=== PATIENT | male | born 1995 | race Caucasian/White ===

== ENCOUNTER 2019-09-29 12:49 | Emergency (ER) | payer OTHER ==
[~2019-09-29] VITALS: Ht 172.7 cm; Wt 94.9 kg
[2019-09-29 12:52] VITALS: BP 143/102
[2019-09-29 13:37] LABS: ALBUMIN 4.5 g/dL (3.4-5.0); ANION GAP 10 mmol/L (5-15); CALCIUM 10.2 mg/dL (8.5-10.1); CHLORIDE 102 mmol/L (98-107)
[2019-09-29 13:41] LABS: TROPONIN I < 0.015 ng/mL (0.000-0.045)
[2019-09-29 13:47] LABS: CREATININE 1.24 mg/dL (0.7-1.3)
[2019-09-29 14:02] LABS: MEAN CORPUSCULAR HEMOGLOBIN 31.5 pg (27.5-34.5); MEAN CORPUSCULAR VOLUME 92.7 fL (81-97); MEAN PLATELET VOLUME 7.6 fL (7.4-10.4); PLATELET COUNT 295 x10^3/uL (130-400); RED BLOOD COUNT 5.12 x10^6/uL (4.38-5.82); RED CELL DISTRIBUTION WIDTH 12.7 % (9.4-14.8)
[2019-09-29 14:03] LABS: MD YES
[2019-09-29 14:07] LABS: <RBC MORPHOLOGY> NORMAL; LYMPH#(MANUAL) 3.71 x10^3/uL (1-3.4); LYMPHS% (MANUAL) 47 % (22-44); MONOS#(MANUAL) 0.71 x10^3/uL (0.3-2.7); MONOS% (MANUAL) 9 % (2-9); REACTIVE LYMPHS # (MANUAL) 0.08 x10^3/uL (0-0); REACTIVE LYMPHS % (MANUAL) 1 % (0-0); SEGS% (MANUAL) 43 % (42-75)
[2019-09-29 14:08] LABS: <PLATELET ESTIMATE> ADEQUATE; <PLT MORPHOLOGY> NORMAL PLT MORPH
--- NOTE | 2019-09-29 14:08 | NUR ---
Pt arrives to ed with chest pain x 1 day. Pt denies trauma. Reports that it started after lunch. Pt reports no cardiac hx. Pt does reports moderate fatigue. Pt has good cap refill and strong pulses. Pt on monitors. vss.
--- NOTE | 2019-09-29 14:38 | NUR ---
Pt on monitors is in SR, nadn. Reports mild chest discomfort.
--- NOTE | 2019-09-29 15:09 | NUR ---
Patient/Caregiver given discharge instructions and they have confirmed that they understand the instructions. Patient ambulatory with steady gait.
== END 2019-09-29 15:11 | disposition home or self-care (01) ==
LOC: ED 13:10
DX: R07.89 Other chest pain (principal)
CPT/HCPCS: 36415; 71045; 80048; 82040; 84484; 85025; 93005; 99285